=== PATIENT | female | born 1985 | race African-American/Black ===

== ENCOUNTER 2018-01-17 18:12 | Emergency (ER) | payer BC ==
[2018-01-17 19:09] LABS: Bilirubin Negative (Negative); Blood, Urine Negative (Negative); Clarity CLEAR (Clear); Glucose, Urine (Dipstick) Negative (Negative); Leukocyte Trace (Negative); Nitrite Negative (Negative); Protein, Urine (Dipstick) Negative (Neg-Trace); Urobilinogen 0.2 mg/dL (0.2-1.0)
[2018-01-17 19:10] LABS: Bacteria/HPF None Seen HPF (None Seen); Hyaline Casts/LPF 0-3 HYALINE CAST LPF (0-3 Hyaline); Pathc Cast-AUWi Flag 0.43 (0-2.49); WBC/HPF 0-3 HPF (0-3)
[2018-01-17 19:12] LABS: Pregnancy Test - Urine (BHCG) Negative (Negative); Pregu Control Background? CLEAR/WHITE (CLR/WHITE); Pregu Control Bar Appear? YES (CONTROL BAR)
[2018-01-17] MEDS ORDERED: Ketorolac Tromethamine 60 MG/2 ML VIAL ONE (19:16)
== END 2018-01-17 19:42 | disposition home or self-care (01) ==
LOC: ERS 18:12
DX: J02.9 Acute pharyngitis, unspecified (principal); R10.9 Unspecified abdominal pain
CPT/HCPCS: 81003; 81015; 81025; 87081; 87430; 96372; J1885

== ENCOUNTER 2018-02-24 09:39 | Emergency (ER) | payer BC ==
[2018-02-24 10:29] LABS: Bilirubin Negative (Negative); Blood, Urine Negative (Negative); Clarity CLOUDY (Clear); Glucose, Urine (Dipstick) Negative (Negative); Leukocyte Trace (Negative); Nitrite Negative (Negative); Protein, Urine (Dipstick) Negative (Neg-Trace); Specific Gravity, Urine 1.015 (1.002-1.036); Urobilinogen 0.2 mg/dL (0.2-1.0)
[2018-02-24 10:32] LABS: Bacteria/HPF Rare-Few HPF (None Seen); Hyaline Casts/LPF 0-3 HYALINE CAST LPF (0-3 Hyaline); Pathc Cast-AUWi Flag 0.29 (0-2.49); RBC/HPF 0-3 HPF (0-3); WBC/HPF 0-3 HPF (0-3)
[2018-02-24] MEDS ORDERED: Diazepam 5 MG TAB ONE (12:39)
[2018-02-24] MEDS ORDERED: Ketorolac Tromethamine 30 MG/ML VIAL ONE (12:39)
== END 2018-02-24 13:17 | disposition home or self-care (01) ==
LOC: ERS 09:39
DX: S39.012A Strain of muscle, fascia and tendon of lower back, initial encounter (principal); X50.9XXA Other and unspecified overexertion or strenuous movements or postures, initial encounter
CPT/HCPCS: 81003; 81015; 96372; J1885

== ENCOUNTER 2018-08-12 11:12 | Emergency (ER) | payer BC ==
[2018-08-12] MEDS ORDERED: Acetaminophen 500 MG TAB ONE (11:28)
== END 2018-08-12 12:14 | disposition home or self-care (01) ==
LOC: ERS 11:12
DX: J10.1 Influenza due to other identified influenza virus with other respiratory manifestations (principal); Z79.899 Other long term (current) drug therapy
CPT/HCPCS: 87804; 99283

== ENCOUNTER 2018-11-30 14:13 | Emergency (ER) | payer BC, SELFPAY ==
[2018-11-30 14:54] LABS: Bilirubin Negative (Negative); Blood, Urine Negative (Negative); Clarity CLOUDY (Clear); Glucose, Urine (Dipstick) Negative (Negative); Leukocyte Small (Negative); Nitrite Negative (Negative); Protein, Urine (Dipstick) 100 mg/dL (Neg-Trace)
[2018-11-30 14:56] LABS: Pregnancy Test - Urine (BHCG) Negative (Negative)
[2018-11-30 14:57] LABS: Bacteria/HPF 2+ HPF (None Seen); Pregu Control Background? CLEAR/WHITE (CLR/WHITE); Pregu Control Bar Appear? YES (CONTROL BAR); Squamous Epithelial 21-50 HPF (0-3); WBC/HPF 21-50 HPF (0-3)
[2018-11-30 15:00] LABS: Pathc Cast-AUWi Flag 12.24 (0-2.49)
[2018-11-30 15:06] LABS: Hyaline Casts/LPF NONE SEEN LPF (0-3 Hyaline); Manual Microscopic Reviewed? No Path Casts Seen; RBC/HPF None Seen HPF (0-3)
== END 2018-11-30 16:05 | disposition home or self-care (01) ==
LOC: ERS 14:13
DX: N39.0 Urinary tract infection, site not specified (principal); I10 Essential (primary) hypertension; Z79.899 Other long term (current) drug therapy
CPT/HCPCS: 81003; 81015; 81025; 99283

== ENCOUNTER 2019-05-01 19:34 | Emergency (ER) | payer BC ==
[2019-05-01] MEDS ORDERED: Bicillin LA 1.2 MILLION UNITS/2 ML SYRINGE ONE (19:42)
[2019-05-01] MEDS ORDERED: Ibuprofen 200 MG TAB ONE (19:47)
== END 2019-05-01 20:00 | disposition home or self-care (01) ==
LOC: ERS 19:34
DX: J02.9 Acute pharyngitis, unspecified (principal)
CPT/HCPCS: 96372; 99282; J0561

== ENCOUNTER 2024-08-19 14:30 | Emergency (ER) | payer BC ==
[2024-08-19 16:45] LABS: Pregnancy Test - Urine (BHCG) Negative (Negative); Pregu Control Background? CLEAR/WHITE (CLR/WHITE); Pregu Control Bar Appear? YES (CONTROL BAR); Specific Gravity 1.026 (1.002-1.036)
[2024-08-19 16:54] LABS: Bilirubin Negative (Negative); Blood, Urine 2+ (Negative); CAUTI Indications for Culture Immunosuppressed; Clarity Clear (Clear); Glucose, Urine (Dipstick) Normal (Negative); Ketone, Urine Negative (Negative); Leukocyte Negative Leu/uL (Negative); Nitrite Negative (Negative); Protein, Urine (Dipstick) Negative (Neg-Trace); Specific Gravity, Urine 1.026 (1.002-1.036); Urobilinogen Normal mg/dL (Less than 2); WBC/HPF 0-3 HPF (0-3); pH, Urine 6.5 (5.0-9.0)
[2024-08-19 16:56] LABS: Bacteria/HPF 1+ HPF (None Seen); Urine Culture Reflex Yes Yes
== END 2024-08-19 18:11 | disposition home or self-care (01) ==
LOC: ERS 14:30
DX: R53.1 Weakness (principal)
CPT/HCPCS: 81001; 81025; 87086; 87428; 99284